=== PATIENT | female | born 1960 | race Caucasian/White ===

== ENCOUNTER 2023-04-27 10:27 | Emergency (ER) | payer MEDICAID ==
[~2023-04-27] VITALS: Ht 160 cm; Wt 90.0 kg
[2023-04-27 10:44] VITALS: BP 142/83; PULSE 74; RESP 18; TEMP 97; O2SAT 100
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
== END 2023-04-27 13:20 | disposition home or self-care (01) ==
LOC: ER 10:28
DX: R53.1 Weakness (principal); Z00.8 Encounter for other general examination; Z88.8 Allergy status to other drugs, medicaments and biological substances; Z88.1 Allergy status to other antibiotic agents
CPT/HCPCS: 99281

== ENCOUNTER 2023-05-05 11:40 | Emergency (ER) | payer MEDICAID ==
[~2023-05-05] VITALS: Ht 167.6 cm; Wt 110.0 kg
[2023-05-05 11:51] VITALS: BP 158/94; PULSE 83; RESP 18; TEMP 98; O2SAT 98
== END 2023-05-05 14:27 | disposition left against medical advice (07) ==
LOC: ER 11:41
DX: Z76.0 Encounter for issue of repeat prescription (principal); Z53.21 Procedure and treatment not carried out due to patient leaving prior to being seen by health care provider
CPT/HCPCS: 99281